=== PATIENT | female | born 1990 | race Two or more races ===

== ENCOUNTER 2023-06-02 16:49 | Observation (INO) | payer MEDICAID | END 2023-06-02 17:55 | disposition home or self-care (01) | LOC: LDRP 16:49 → UNDOADMOB 16:49 → LDRP 16:55 → UNDODISOB 17:55 | PROVIDERS: ADMIT Obstetrics & Gynecology; ATTEND Obstetrics & Gynecology | DX: O26.892 Other specified pregnancy related conditions, second trimester (principal); R50.9 Fever, unspecified; R05.9 Cough, unspecified; R09.81 Nasal congestion; R51.9 Headache, unspecified; O99.512 Diseases of the respiratory system complicating pregnancy, second trimester; J02.9 Acute pharyngitis, unspecified; Z3A.20 20 weeks gestation of pregnancy | CPT/HCPCS: 59025; 81002; 94760; G0378 ==

== ENCOUNTER 2023-08-12 20:35 | Observation (INO) | payer MEDICAID ==
[~2023-08-12] VITALS: Ht 30.5 cm; Wt 0.5 kg
[2023-08-12] MEDS ORDERED: LACTATED RINGER'S 1,000 ML IV ONE (21:15)
[2023-08-12 22:12] LABS: Urine Bacteria NONE SEEN /hpf (None Seen); Urine Blood Negative /uL (Negative); Urine Clarity Clear (Clear); Urine Color Yellow (Yellow); Urine Protein, UAD Negative (Negative); Urine Specific Gravity 1.018 (1.001-1.035); Urine Urobilinogen Normal (Negative); Urine WBC 1 /hpf (0 - 5)
[2023-08-12] MEDS ORDERED: PREN-96 OR (22:35)
== END 2023-08-12 22:49 | disposition home or self-care (01) ==
LOC: LDRP 20:35
PROVIDERS: ADMIT Obstetrics & Gynecology; ATTEND Obstetrics & Gynecology
DX: O71.6 Obstetric damage to pelvic joints and ligaments (principal); O26.893 Other specified pregnancy related conditions, third trimester; R10.2 Pelvic and perineal pain; Z3A.30 30 weeks gestation of pregnancy
CPT/HCPCS: 59025; 81001; 81002; 94760; G0378

== ENCOUNTER 2023-10-14 14:01 | Inpatient (IN) | payer MEDICAID ==
[~2023-10-14] VITALS: Ht 152.4 cm; Wt 104.3 kg
[~2023-10-14 14:01] MED LIST: PREN-96 OR
[2023-10-14] MEDS ORDERED: miSOPROStol 50 MCG per PRE-CUT 1/2 TAB PO PRN (14:45)
[2023-10-14] MEDS ORDERED: BUTORPHANOL TARTRATE 2 MG/1 ML VIAL IV PRN (14:45)
[2023-10-14] MEDS ORDERED: LIDOCAINE 2%HCL (LOCAL ANESTH.) INJ 20ML MDV IJ PRN (14:45)
[2023-10-14 14:52] LABS: Fern Testing Positive
[2023-10-14 15:40] LABS: Urine Bacteria None Seen /hpf (None Seen)
[2023-10-14 15:52] LABS: Basophils # (auto) 0 10 ^3/uL (0-0.2); Basophils % (auto) 0.3 % (0.0-2.0); Eosinophils # (auto) 0.1 10 ^3/uL (0-0.8); Eosinophils % (auto) 1.5 % (0.0-7.0); Hematocrit 37.4 % (36.0-46.0); Hemoglobin 12.7 g/dL (12.2-16.2); Lymphocytes # (auto) 1.2 10 ^3/uL (0.4-5.4); Lymphocytes % (auto) 16.4 % (10.0-50.0); Mean Corpuscular Hemoglobin 30.3 pg (28.0-32.0); Mean Corpuscular Hgb Conc. 33.9 g/dL (32.0-36.0); Mean Corpuscular Volume 89.4 fL (80.0-100.0); Monocytes # (auto) 0.3 10 ^3/uL (0-1.3); Monocytes % (auto) 4.3 % (0.0-12.0); Neutrophils # (auto) 5.9 10 ^3/uL (1.6-8.6); Neutrophils % (auto) 77.5 % (37.0-80.0); Nucleated Red Blood Cells % 0.1 %; Red Blood Cells 4.19 10^6/uL (4.0-5.20); Red Cell Distribution Width 16.3 % (11.8-14.3); White Blood Cell 7.5 10^3/uL (4.4-10.8)
[2023-10-14] MEDS: LACTATED RINGER'S 1,000 ML IV SCH (15:56)
[2023-10-14] MEDS: PHISODERM TOP SOLN 240ML BTL TOP PRN (15:57)
[2023-10-14] MEDS: DERMOPLAST 60ML BOTTLE TOP PRN (15:57)
[2023-10-14] MEDS: PENICILLIN G POT 5MIL/D5 50ML 50 ML IV ONE (15:57)
[2023-10-14] MEDS: WITCH HAZEL-GLYCERIN PAD TOP PRN (15:57)
[2023-10-14 16:07] LABS: INR 0.93 (0.9-1.15); Partial Thromboplastin Time 27.1 SEC (24.5-34.5); Prothrombin Time 9.8 sec (9.3-11.8)
[2023-10-14 16:11] LABS: Alanine Aminotransferase 25 U/L (7-40); Albumin 3.5 g/dL (3.2-4.8); Alkaline Phosphatase 234 U/L (46-116); Anion Gap 6 (5-15); Aspartate Aminotransferase 19 U/L (13-40); BUN/Creatinine Ratio 10.7 (10.0-20.0); Bilirubin, Total 0.4 mg/dL (0.2-1.0); Blood Urea Nitrogen 6 mg/dL (9-23); Calcium 9.6 mg/dL (8.7-10.4); Carbon Dioxide 23 mmol/L (20-30); Chloride 109 mmol/L (98-107); Glucose 80 mg/dL (74-106); Potassium 3.9 mmol/L (3.5-5.1); Sodium 138 mmol/L (136-145); Total Protein 6.4 g/dL (5.7-8.2)
[2023-10-14 16:14] LABS: Urine Blood Negative /uL (Negative); Urine Clarity Clear (Clear); Urine Color Yellow (Yellow); Urine Mucus FEW (None Seen); Urine Protein, UAD TRACE (Negative); Urine Specific Gravity 1.029 (1.001-1.035); Urine Urobilinogen Normal (Negative); Urine WBC 8 /hpf (0 - 5)
[2023-10-14] MEDS ORDERED: TERBUTALINE SULFATE 1 MG/ML 1ML VIAL SC PRN (16:15)
[2023-10-14 16:29] LABS: Amphetamine Screen, Urine Neg (NEGATIVE)
[2023-10-14 16:30] LABS: Barbiturate Scree,Urine Neg (NEGATIVE); Benzodiazephine Screen, Urine Neg (NEGATIVE); Cannabinoid Screen, Urine Neg (NEGATIVE); Cocaine Screen, Urine Neg (NEGATIVE); Opiate Scree,Urine Neg (NEGATIVE); Phencyclidine Screen, Urine Neg (NEGATIVE)
[2023-10-14] MEDS: LACT. RINGERS/OXYTOCIN 20UNITS 1,000 ML IV SCH (16:45)
[2023-10-14] MEDS: PENICILLIN G POTASSIUM 2,500,000 UNITS in D5W 5% 50 ML IV SCH (20:28)
[2023-10-14] MEDS: BUTORPHANOL TARTRATE 2 MG/1 ML VIAL IV PRN (23:41)
[2023-10-15] MEDS ORDERED: ONDANSETRON HCL 4 MG/2 ML VIAL IV PRN
[2023-10-15] MEDS: STERILE WATER 10 ML ONE (00:34)
[2023-10-15] MEDS: STERILE WATER IV ONE (00:36)
[2023-10-15] MEDS: LACTATED RINGER'S 1,000 ML IV ONE (01:30)
[2023-10-15] MEDS ORDERED: fentaNYL CITRATE 100 MCG/2 ML VL IV ONE (01:30)
[2023-10-15] MEDS: NALOXONE HCL 0.4 MG/ML VIAL IV ONE (01:30)
[2023-10-15] MEDS: ePHEDrine SULFATE 50 MG/ML AMP IV ONE (01:30)
[2023-10-15] MEDS: fentaNYL CITRATE 100 MCG/2 ML VL IV ONE (04:04)
[2023-10-15] MEDS: ROPIVACAINE HCL 200 ML ONE (04:06)
[2023-10-15 08:06] LABS: RPR Non Reactive (Non Reactive)
[2023-10-15] MEDS: METHYLERGONOVINE MALEATE 0.2 MG/ML AMP IM ONE (08:09)
[2023-10-15] MEDS: LACT. RINGERS/OXYTOCIN 20UNITS 500 ML IV ONE ×2 (08:26→08:27)
[2023-10-15] MEDS ORDERED: IBUPROFEN 600 MG TAB PO PRN (08:30)
[2023-10-15] MEDS ORDERED: ACETAMINOPHEN 325 MG TAB PO PRN (08:30)
[2023-10-15] MEDS: ceFAZolin 1GM/50ML 50 ML IV SCH (10:41)
[2023-10-15 10:45] VITALS: BP 122/60; PULSE 105; RESP 20; TEMP 97.7; O2SAT 96
[2023-10-15 15:00] VITALS: BP 124/64; PULSE 91; RESP 16; TEMP 98.3; O2SAT 97
[2023-10-15 19:00] VITALS: PULSE 100; RESP 16; O2SAT 100
[2023-10-15 19:08] VITALS: BP 126/74; PULSE 100; RESP 16; TEMP 98; O2SAT 100
[2023-10-15] MEDS ORDERED: ceFAZolin 1GM/50ML 50 ML IV SCH (22:00)
[2023-10-15 23:00] VITALS: BP 133/66; PULSE 90; RESP 16; TEMP 97.9; O2SAT 100
[2023-10-16 02:36] VITALS: BP 126/75; PULSE 91; RESP 16; TEMP 97.8; O2SAT 99
[2023-10-16 07:00] VITALS: BP 139/89; PULSE 100; PULSE 94; RESP 16; TEMP 97.8; O2SAT 100; O2SAT 94
[2023-10-19 19:06] LABS: Treponema pallidum Ab (FTA-Ab) Non Reactive (Non Reactive)
== END 2023-10-16 09:50 | disposition home or self-care (01) | DRG 560 ==
LOC: UNDOADMOB 14:01 → LDRP 14:01 → OBSVTOIN 14:34 → LDRP 14:35
PROVIDERS: ADMIT Obstetrics & Gynecology; ATTEND Obstetrics & Gynecology
PROC: 10E0XZZ Delivery of Products of Conception, External Approach (ICD-10-PCS; principal; 2023-10-15)
PROC: 4A1HXCZ Monitoring of Products of Conception, Cardiac Rate, External Approach (ICD-10-PCS; 2023-10-15)
PROC: 3E0R3BZ Introduction of Anesthetic Agent into Spinal Canal, Percutaneous Approach (ICD-10-PCS; 2023-10-15)
PROC: 00HU33Z Insertion of Infusion Device into Spinal Canal, Percutaneous Approach (ICD-10-PCS; 2023-10-15)
PROC: 0KQM0ZZ Repair Perineum Muscle, Open Approach (ICD-10-PCS; 2023-10-15)
PROC: 3E033VJ Introduction of Other Hormone into Peripheral Vein, Percutaneous Approach (ICD-10-PCS; 2023-10-15)
PROC: 3E0DXGC Introduction of Other Therapeutic Substance into Mouth and Pharynx, External Approach (ICD-10-PCS; 2023-10-15)
DX: O24.429 Gestational diabetes mellitus in childbirth, unspecified control (principal); Z37.0 Single live birth; O70.1 Second degree perineal laceration during delivery; Z3A.39 39 weeks gestation of pregnancy; O99.824 Streptococcus B carrier state complicating childbirth
CPT/HCPCS: 36415; 59025; 59409; 62282; 76818; 80053; 80307; 81001; 81002; 84112; 85025; 85610; 85730; 86592; 86850; 86900; 86901; 94760; 96360; 96361; 96365; 96366; 96372; 96374; G0378; J2540; J2590; J7060